=== PATIENT | female | born 2000 ===

== ENCOUNTER → 2023-09-11 | Outpatient (CLI) | payer OTHER | END | disposition home or self-care (01) | LOC: LAB 11:47 | PROVIDERS: ATTEND Nurse Practitioner Family | DX: R30.0 Dysuria (principal) ==

== ENCOUNTER → 2024-07-13 | Outpatient (CLI) | payer OTHER | END | disposition home or self-care (01) | LOC: US 08:11 | PROVIDERS: ATTEND Nurse Practitioner Women's Health | DX: N94.89 Other specified conditions associated with female genital organs and menstrual cycle (principal); N92.1 Excessive and frequent menstruation with irregular cycle ==